=== PATIENT | male | born 1965 | race Caucasian/White ===

== ENCOUNTER 2018-04-17 18:49 | Emergency (ER) | payer OTHER ==
[~2018-04-17] VITALS: Ht 152.4 cm; Wt 108.9 kg
[2018-04-17] MEDS ORDERED: LIPITOR20 MG (19:16)
[2018-04-17] MEDS ORDERED: HYZAAR 100-251 EACH (19:16)
[2018-04-17] MEDS ORDERED: TOPROL XL25 M1 PO (21:42)
== END 2018-04-17 21:48 | disposition home or self-care (01) ==
LOC: ER 18:49
DX: I10 Essential (primary) hypertension (principal)

== ENCOUNTER 2021-07-02 13:17 | Emergency (ER) | payer OTHER ==
[~2021-07-02] VITALS: Ht 157.5 cm; Wt 113.4 kg
[~2021-07-02 13:17] MED LIST: HYZAAR 100-251 EACH; LIPITOR20 MG; TOPROL XL25 M1 PO
[2021-07-02] MEDS ORDERED: MOTION SICKNESS25 M1 PO (17:31)
== END 2021-07-02 17:52 | disposition home or self-care (01) ==
LOC: ER 13:17
DX: R42 Dizziness and giddiness (principal); H81.10 Benign paroxysmal vertigo, unspecified ear

== ENCOUNTER 2021-07-06 10:30 | Emergency (ER) | payer OTHER ==
[~2021-07-06] VITALS: Ht 157.5 cm; Wt 113.4 kg
[~2021-07-06 10:30] MED LIST changes: +MOTION SICKNESS25 M1 PO
[2021-07-06] MEDS ORDERED: NORVASC5 MG PO (10:37)
== END 2021-07-06 13:35 | disposition home or self-care (01) ==
LOC: ER 10:30
DX: G51.0 Bell's palsy (principal); I10 Essential (primary) hypertension

== ENCOUNTER → 2023-10-01 | Emergency (ER) | payer OTHER ==
[~2023-10-01] VITALS: Ht 157.5 cm; Wt 111.1 kg
[~2023-10-01] MED LIST changes: +NORVASC5 MG PO; +SINGULAIR10 MG PO
== END | disposition left against medical advice (07) ==
LOC: ER 23:44
DX: Z53.21 Procedure and treatment not carried out due to patient leaving prior to being seen by health care provider (principal)